=== PATIENT | male | born 1955 | race Native Hawaiian/Other Pacific Islander ===

== ENCOUNTER 2022-02-09 15:04 | Emergency (ER) | payer OTHER ==
[~2022-02-09] VITALS: Ht 182.9 cm; Wt 116.1 kg
[2022-02-09 15:10] VITALS: BP 153/64; TEMP 99.1
[2022-02-09] MEDS ORDERED: TRICOR145 M1 PO (17:54)
[2022-02-09] MEDS ORDERED: ASPIRIN 8181 MG PO (17:54)
[2022-02-09] MEDS ORDERED: LISI5TAB10 PO (17:55)
[2022-02-09] MEDS ORDERED: LIPITOR80 MG PO (17:55)
[2022-02-09] MEDS ORDERED: LEVO0.0723 PO (17:56)
[2022-02-09] MEDS ORDERED: TRADJENTA5 M1 PO (17:57)
[2022-02-09] MEDS ORDERED: EZETIMIBE10 MG PO (17:57)
[2022-02-09] MEDS ORDERED: INSULIN GL100 UNIT/M SC (17:58)
[2022-02-09] MEDS ORDERED: MEMANTINE HYDRO10 MG PO (17:59)
[2022-02-09] MEDS ORDERED: NOVOLIN R100 UNIT/1 SC (18:01)
[2022-02-09] MEDS ORDERED: KETOCONAZOLE2 % TOP (18:03)
== END 2022-02-09 16:50 | disposition still patient (30) ==
LOC: ED 15:04
DX: F20.89 Other schizophrenia (principal); Z11.52 Encounter for screening for COVID-19; Z04.6 Encounter for general psychiatric examination, requested by authority
CPT/HCPCS: 87635; 93005; 99283; U0003